=== PATIENT | female | born 1985 | race Two or more races ===

== ENCOUNTER → 2020-09-13 | Outpatient (CLI) | payer OTHER | END | disposition home or self-care (01) | LOC: OFIC 805 16:00 | PROVIDERS: ATTEND Otolaryngology | DX: H70.11 Chronic mastoiditis, right ear (principal); L30.8 Other specified dermatitis ==

== ENCOUNTER → 2020-10-12 | Outpatient (CLI) | payer OTHER | END | disposition home or self-care (01) | LOC: OFIC 805 09:46 | PROVIDERS: ATTEND Otolaryngology | DX: H70.11 Chronic mastoiditis, right ear (principal) ==